=== PATIENT | female | born 1980 | race Caucasian/White ===

== ENCOUNTER → 2019-10-17 10:40 | Outpatient (BNVA) | payer MEDICAID, SELFPAY | PROVIDERS: PCP Obstetrics & Gynecology; Visit Provider Obstetrics & Gynecology | DX: O09.893 Supervision of other high risk pregnancies, third trimester (principal) | CPT/HCPCS: 81003 ==

== ENCOUNTER 2019-10-23 06:38 | Inpatient (IN) | payer MEDICAID, SELFPAY ==
[2019-10-23] VITALS (53 sets, daily range): BP systolic 0–189; BP diastolic 0–88; PULSE 70–112; RESP 16–18; TEMP 36.6–36.7; O2SAT 96–98; BMI 46.5
[2019-10-23 07:25] LABS: Basophils % 0.5 %; Eosinophils # 0.2 10^3/uL (0.0-0.8); Eosinophils % 2.4 %; Hematocrit 36.1 % (37.0-47.0); Hemoglobin 11.2 g/dL (11.5-15.3); Lymphocytes # 1.9 10^3/uL (0.8-4.8); Lymphocytes % 21.3 %; Mean Corpuscular Hemoglobin 26.2 pg (28.0-34.0); Mean Corpuscular Volume 84.5 fL (81-99); Mean Platelet Volume 11.2 fL (7.4-10.4); Monocytes # 0.5 10^3/uL (0.2-0.9); Monocytes % 5.8 %; Neutrophils # 6.1 10^3/uL (1.8-7.7); Neutrophils % 69.5 %; Nucleated Red Blood Cells % 0 %; Platelet Count 231 10^3/cmm (130-400); Red Blood Count 4.27 10^6/uL (4.1-5.3); Red Cell Distribution Width 14.4 % (12.1-15.1); White Blood Count 8.7 10^3/uL (4.0-10.0)
[2019-10-23] MEDS: dextrose 5%-lactated ringers 1,000 ML 125 ML IV ×2 (07:45→17:23)
[2019-10-23] MEDS: ampicillin 2,000 MG in sodium chloride 0.9% (plus) 50 ML 100 MG IV (07:46)
--- NOTE | 2019-10-23 07:49 | PC.NURSE ---
0704 - LENORE PRUITT CRNA CALLED ABOUT THAT IS IN ACTIVE LABOR AT 6CM. SURGEON IS ON HIS WAY IN WELL.
[2019-10-23] MEDS: ondansetron 2 mg/ML SDV 2 mL 4 MG IVP ×2 (08:31→15:53)
[2019-10-23] MEDS: ampicillin 1,000 MG in sodium chloride 0.9% (plus) 50 ML 100 MG IV ×2 (12:05→15:50)
[2019-10-23] MEDS: oxytocin 30 UNIT/500 ML BAG IV (12:45)
--- NOTE | 2019-10-23 17:07 | P.PCNOB_ITS ---
Delivery Note: Date of delivery: 10/25/19 Pre-delivery diagnoses: Term . Previous delivery. Post-delivery diagnoses: Term delivered. Vaginal after delivery. Procedure: Spontaneous vaginal delivery. Anesthesia: none Delivering Physician: Dariusz Cameron M.D. Estimated blood loss (mL): 300 Findings: Male , Apgars 8/9, weight 3950 g. Pre-Delivery Course: The patient is a 39yo at 41 weeks weeks EGA who has been receiving care from [facility]. With a previous delivery plans a vaginal after delivery. She has been experiencing painful uterine contractions for the past 8 hours. The contractions are occurring at 9 minute intervals with approximately 60 second duration. She continues to feel movement between the contractions. She denies vaginal bleeding or rupture of membranes. LMP: unknown Estimated date of confinement: 10/16/2019 by ultrasound at 17 weeks. CC: Onset of labor at term. HPI: Received appropriate care. Daily vitamins since start of care. labs have all been normal, including negative for HIV. She was found to positive for Group B Strep from screening at 36 weeks. She has gained approximately 28 lbs throughout the . She denies a history of HTN during . Glucose tolerance screening for gestational diabetes was negative. Delivery: The patient was noted to be complete and pushing, so was placed in the dorsal lithotomy position, prepped and draped in the usual sterile fashion for a vaginal delivery. Pt. Noted to have no anesthesia by her choice. At 1857 the patient delivered a Viable Term male infant weighing 3950 g with scores of 8 and 9 at one and five minutes, respectively. The vertex was delivered spontaneously over Intact perineum. The patient was asked to push and the head delivered spontaneously in the LAUREL compound position, over an intact perineum. A nuchal cord was checked and None noted. The anterior shoulder delivered easily and the posterior shoulder followed. The remainder of the infant was easily delivered and the oropharynx and nasopharynx was bulb suctioned. The was noted to have spontaneous cry and spontaneous movement of all four extremities. The cord was clamped x 2 and cut and noted to have 2 arteries and one vein. The was passed to the Mother's abdomen where Nursing personnel were in attendance. The placenta delivered intact Spontaneously and the uterus Was explored. 20 units of Pitocin was placed in the IV bag to firm the uterus. Examination of the cervix and vaginal vault did not reveal any lacerations. A vaginal pack was then placed. Examination of the perineum showed No lacerations. The vaginal pack was then removed. The patient tolerated this procedure well, and recovered in L&D with her To the OB gómez. All sponge and needle counts were correct. 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
[2019-10-23] MEDS: acetaminophen 325 mg Tablet 650 MG PO (17:26)
[2019-10-23] MEDS: docusate sodium 100 mg Capsule PO (17:26)
[2019-10-23] MEDS: benzocaine-menthol 78 gm Canister 1 SPRAY TOPICAL (17:34)
[2019-10-23] MEDS: ketorolac 30 mg/mL INJ IVP (17:44)
[2019-10-23] MEDS: oxytocin 30 UNIT/500 ML BAG 600 UNIT IV (17:52)
[2019-10-23 20:06] LABS: Blood Urine Neg (Negative); Glucose Urine UA 4+ (Normal); Ketones Urine 2+ (Negative); Protein Urine 1+ (Negative); Specific Gravity, Urine 1.025 (1.005-1.030); Urine Appearance Clear (CLEAR); Urine Color Yellow (Yellow); pH Urine 5 (5-7)
[2019-10-23 20:07] LABS: Add Urine Microscopic? YES; Bacteria Urine 1+; Bilirubin Urine Neg (NEGATIVE); Leukocyte Esterase Urine Negative (Negative); Mucus Urine 2+; Nitrate Urine Negative (Negative); RBC Urine 0-4 /hpf (0-2); Squamous Epithelial Cell Urine 0-4 (0-5); Urobilinogen Urine Norm (Negative)
[2019-10-23 20:08] LABS: Alanine Aminotransferase 15 U/L (0-33); Albumin Level 3.3 g/dL (3.5-5.2); Alkaline Phosphatase 120 IU/L (35-105); Anion Gap 25.5 (5-19); Aspartate Amino Transferase 19 U/L (0-32); Blood Urea Nitrogen 11 mg/dL (6-20); Calcium 8.5 mg/Dl (8.6-10.0); Carbon Dioxide 18 mmol/L (22-29); Chloride 107 mmol/L (98-107); Globulin 2.5 g/dL (1.3-4.6); Glomerular Filtration Rate 136.6 mL/min (90-130); Glucose 141 mg/dL (74-109); Potassium 3.5 mmol/L (3.5-5.1); Sodium 147 mmol/L (136-145); Total Bilirubin 0.2 mg/dL (0.15-1.2); Total Protein 5.8 g/dL (6.6-8.7); Uric Acid 4.1 mg/dL (2.4-5.7)
[2019-10-23 20:16] LABS: Urine Creatinine 216 mg/dL (28-217)
[2019-10-23 20:21] LABS: UPRO/UCREAT Ratio 0.36 mg/mg CR; Urine Protein Random 78 mg/dL
--- NOTE | 2019-10-23 20:45 | PC.NURSE ---
patient eating dinner with at this time.
--- NOTE | 2019-10-23 21:00 | PC.NURSE ---
Patient called out stating that she was finished with her food and would like to go to the bathroom before the magnesium was started. patient up to void with RN at side.
[2019-10-23] MEDS: dextrose 5%-lactated ringers 1,000 ML 75 ML IV (21:17)
[2019-10-23] MEDS: magnesium sulfate premix 4 GM/100 ML PREMIX IV (21:18)
--- NOTE | 2019-10-23 21:20 | PC.NURSE ---
SCDs applied at this time to bilateral lower extremities and pump on and working.
--- NOTE | 2019-10-23 21:48 | PC.NURSE ---
Mag restarted at 2147 with Yesenia De La Cruz RN to verify dose due to IV infiltration and having to restart IV.
[2019-10-23] MEDS: magnesium sulfate premix 20 GM/500 ML BAG IV (22:07)
[2019-10-23 23:35] LABS: Magnesium Level (OB Only) 3.8 mg/dL (5.0-7.5)
[2019-10-24] VITALS (22 sets, daily range): BP systolic 101–172; BP diastolic 65–88; PULSE 65–86; RESP 15–18; TEMP 36.5–36.9; O2SAT 96–98
[2019-10-24] MEDS: acetaminophen 325 mg Tablet 650 MG PO (04:18)
[2019-10-24 05:26] LABS: Hematocrit 32.1 % (37.0-47.0); Hemoglobin 9.8 g/dL (11.5-15.3); Mean Corpuscular HGB Conc 30.5 g/dL (30.0-36.0); Mean Corpuscular Hemoglobin 26.4 pg (28.0-34.0); Mean Corpuscular Volume 86.5 fL (81-99); Mean Platelet Volume 10.5 fL (7.4-10.4); Platelet Count 184 10^3/cmm (130-400); Red Blood Count 3.71 10^6/uL (4.1-5.3); Red Cell Distribution Width 14.6 % (12.1-15.1); White Blood Count 12.9 10^3/uL (4.0-10.0)
[2019-10-24 05:44] LABS: Magnesium Level (OB Only) 4.7 mg/dL (5.0-7.5)
[2019-10-24] MEDS: magnesium sulfate premix 20 GM/500 ML BAG IV ×2 (08:23→18:44)
[2019-10-24] MEDS: prenatal vitamin Capsule 1 CAP PO (08:24)
[2019-10-24] MEDS: pantoprazole DR 40 mg Tablet PO (08:24)
--- NOTE | 2019-10-24 08:42 | PM.OBGYPN ---
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 Feeling fine Labor: Station: +1 Amniotic Membrane Status: Ruptured Monitor Mode: External Contraction Pattern: Regular Status: Category ll Vitals/I&O/Wt Last Vital Signs Temp 98.4 F 10/24/19 05:00 Pulse 82 10/24/19 06:11 Resp 16 10/24/19 06:11 BP 125/77 10/24/19 06:11 Pulse Ox 97 10/24/19 06:11 10/23/19 10/24/19 10/24/19 22:59 06:59 14:59 Intake Total 1514.133 / 1569.133 500 / 500 Output Total 630 / 630 840 / 1470 Balance 884.133 / 939.133 -840 / 99.133 500 / 500 Weight last 48 hrs Weight 246 lb Weight 246 lb Physical Exam Narrative: EXAM NARRATIVE: GA; alert and oriented x 3 HEENT: normal Breasts: engorged Nipples - skin intact Lungs; clear to auscultation Heart: regular rhythm, no murmurs. Abd: Appropriately tender. BS+. Uterine fundus below umbilicus. No Fundal Tenderness. Perineum: normal lochia. Extremities: no edema, no cyanosis, no tenderness. Urinary Catheter Management^: [place]: Cath Placed During This Visit: no A&P Assessment and plan (1) Term delivered: At this post spontaneous vaginal delivery without complications. Status: Acute Code(s): O80 - Encounter for full-term uncomplicated delivery (2) Pre-eclampsia, : Patient developed preeclampsia , initiated therapy with magnesium sulfate for seizure prophylaxis. 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
--- NOTE | 2019-10-24 09:23 | PC.NURSE ---
bedrails padded r/t pt on mag. seizure precaution in use
[2019-10-24] MEDS: dextrose 5%-lactated ringers 1,000 ML 75 ML IV (10:57)
[2019-10-24 11:59] LABS: Magnesium Level (OB Only) 4.7 mg/dL (5.0-7.5)
[2019-10-24] MEDS: docusate sodium 100 mg Capsule PO (21:17)
[2019-10-25 04:00] VITALS: BP 99/62; PULSE 81; RESP 16; O2SAT 97
[2019-10-25] MEDS: acetaminophen 325 mg Tablet 650 MG PO (07:26)
[2019-10-25] MEDS: prenatal vitamin Capsule 1 CAP PO (09:11)
[2019-10-25] MEDS: docusate sodium 100 mg Capsule PO (09:11)
[2019-10-25] MEDS: pantoprazole DR 40 mg Tablet PO (09:11)
[2019-10-25 09:21] VITALS: BP 134/79; PULSE 87; RESP 16; TEMP 36.6; O2SAT 97
--- NOTE | 2019-10-25 11:26 | P.DS_ITS ---
Discharge Providers [employer] Date of Admission: 10/23/19 06:38 Date of Discharge: 10/25/19 Attending Provider at Admission: Dariusz Cameron Attending Provider at Discharge: Dariusz Cameron Primary Care Provider: Jovany Solorzano Diagnoses at Discharge Discharge Diagnosis (1) Term delivered: Status: Acute Problem details: patient status post spontaneous vaginal delivery day 2. Plan: Continue magnesium sulfate for 24 hours (2) Pre-eclampsia, : Status: Acute Problem details: Patient developed preeclampsia , initiated therapy with magnesium sulfate for seizure prophylaxis. BP normalized. (3) Previous delivery, delivered: Status: Acute Problem details: Reason for Visit Reason for Visit: Reason For Visit: Iup Hospital Course Hospital Course: 39-year-old female with a previous delivery and an estimated gestational age of 41 weeks came to labor and delivery with contractions in active labor. She progressed to have it the without complications. however she developed preeclampsia and she was given magnesium sulfate for seizure prophylaxis. recovery was uneventful. He is afebrile hemodynamically stable. Tolerating diet well. Ambulating without difficulty. Discharge Summary: The patient is a 39yo at 41 weeks weeks EGA who has been receiving care from [facility]. With a previous delivery plans a vaginal after delivery. She has been experiencing painful uterine contractions for the past 8 hours. The contractions are occurring at 9 minute intervals with approximately 60 second duration. She continues to feel movement between the contractions. She denies vaginal bleeding or rupture of membranes. LMP: unknown Estimated date of confinement: 10/16/2019 by ultrasound at 17 weeks. CC: Onset of labor at term. HPI: Received appropriate care. Daily vitamins since start of care. labs have all been normal, including negative for HIV. She was found to positive for Group B Strep from screening at 36 weeks. She has gained approximately 28 lbs throughout the . She denies a history of HTN during . Glucose tolerance screening for gestational diabetes was negative. Information Peripartum Data: Delivery Method: Vaginal Physical Exam Narrative: EXAM NARRATIVE: GA; alert and oriented x 3 HEENT: normal Breasts: engorged Nipples - skin intact Lungs; clear to auscultation Heart: regular rhythm, no murmurs. Abd: Appropriately tender. BS+. Uterine fundus below umbilicus. No Fundal Tenderness. Perineum: normal lochia. Extremities: no edema, no cyanosis, no tenderness. Urinary Catheter Management^: [place]: Cath Placed During This Visit: no Discharge Data Data Completed and Pending: Labs from last 24 hours 10/24/19 10/24/19 17:39 11:05 Magnesium 5.0 4.7 L* Vitals: Last Vital Signs Temp 97.9 F 10/25/19 09:21 Pulse 87 10/25/19 09:21 Resp 16 10/25/19 09:21 BP 134/79 10/25/19 09:21 Pulse Ox 97 10/25/19 09:21 Discharge Plan Discharge Condition: Stable Prescriptions: New docusate sodium 100 mg Capsule 100 mg PO BID Qty: 60 RF: 0 ferrous sulfate 325 mg (65 mg iron) tablet 325 mg PO BID Qty: 60 RF: 0 ibuprofen 800 mg Tablet 800 mg PO TID Qty: 60 RF: 0 Continued Vitamin 27 mg iron- 800 mcg Tablet 1 tab PO DAILY RF: 0 Nexium 20 mg Capsule,Delayed Release(Dr/Ec) 20 mg PO DAILY RF: 0 Discharge Orders: Discharge Order (Routine); Ordered 10/25/19 Ordered By: Dariusz Cameron Discharge Diet: Regular Discharge Activity: Increase activity as tolerated Patient Instructions: , Your Baby (DC), Expression, Collection and Storage of Breastmilk (DC), How to Hold and Breastfeed Your Baby (DC), and Nipple Soreness (DC), How to Increase Your Milk Supply (DC), Breast Care for the Breast Feeding Mother (DC), Vaginal Delivery (DC), Caring for Your Breastfed Baby (GEN), OB Discharge Report, OB Food/Drug Interaction Guide, OB Care at Home, OB Home Care, OB Proud Parent Packet, OB Vaginal Deliveries Activity Restrictions/Additional Instructions: pelvic rest for 6 weeks. 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
[2019-10-25 16:30] VITALS: BP 136/84; PULSE 83; RESP 16; TEMP 36.8; O2SAT 96
[2019-10-25 16:34] VITALS: BP 136/84; PULSE 83; RESP 16; TEMP 36.8; O2SAT 96
== END 2019-10-25 16:50 | disposition home or self-care (01) | DRG 806 ==
LOC: OPOB 06:52
PROVIDERS: Admitting Provider Obstetrics & Gynecology; PCP Obstetrics & Gynecology; Visit Provider Obstetrics & Gynecology
DX: O34.211 Maternal care for low transverse scar from previous cesarean delivery (principal); O98.813 Other maternal infectious and parasitic diseases complicating pregnancy, third trimester; Z37.0 Single live birth; O14.95 Unspecified pre-eclampsia, complicating the puerperium; Z3A.41 41 weeks gestation of pregnancy; B95.1 Streptococcus, group B, as the cause of diseases classified elsewhere; O09.523 Supervision of elderly multigravida, third trimester
CPT/HCPCS: 12345; 36415; 51702; 59409; 80053; 81003; 82570; 83735; 84156; 84550; 85025; 85027; 96375; 99211; J0290; J1885; J2405; J3475

== ENCOUNTER → 2019-12-05 13:51 | Outpatient (BNVA) | payer MEDICAID, SELFPAY | PROVIDERS: PCP Obstetrics & Gynecology; Visit Provider Obstetrics & Gynecology | DX: Z39.2 Encounter for routine postpartum follow-up (principal); Z30.014 Encounter for initial prescription of intrauterine contraceptive device; Z97.5 Presence of (intrauterine) contraceptive device | CPT/HCPCS: 81025; 88175 ==

== ENCOUNTER 2020-04-30 08:00 | Outpatient (CLI) | payer MEDICAID, SELFPAY ==
--- NOTE | 2020-04-30 08:03 | US_ITS ---
WS: [id number] RIGHT UPPER QUADRANT ULTRASOUND HISTORY: NAUSEA/UPPER BACK PAIN/EPIGASTRIC PAIN COMPARISON: None available. Liver: 16.9 cm in length. Normal size and echogenicity with no intrahepatic dilatation. No mass. Gallbladder: Slightly contracted gallbladder with numerous stones near completely filling the gallbla dder. No pericholecystic fluid. CBD: 0.4 cm Pancreas: Normal size and echogenicity. Right kidney: 11.3 cm in length. Normal echogenicity with no mass or hydronephrosis. Aorta and IVC: Unremarkable. No ascites. US/US abdomen limited 31390 IMPRESSION: Cholelithiasis, numerous stones nearly completely filling the gallbladder lumen .
== END 2020-04-30 08:01 | disposition home or self-care (01) ==
LOC: RAD 08:00
PROVIDERS: Visit Provider Nurse Practitioner Family
DX: M54.9 Dorsalgia, unspecified (principal); R11.0 Nausea; R10.13 Epigastric pain; K80.20 Calculus of gallbladder without cholecystitis without obstruction
CPT/HCPCS: 76705

== ENCOUNTER 2020-05-29 07:05 | Day surgery (SDC) | payer MEDICAID, SELFPAY ==
[2020-05-29] VITALS (11 sets, daily range): BP systolic 130–162; BP diastolic 68–91; PULSE 48–73; RESP 14–20; TEMP 35.9–36.6; O2SAT 18–100
[2020-05-29] MEDS: heparin 5,000 unit/mL INJ 1 mL 3000 UNIT SUBCUT (07:56)
[2020-05-29] MEDS: sodium chloride 0.9% 1,000 ML 30 ML IV (07:56)
[2020-05-29 08:04] LABS: OR HCG Qualitative Urine Negative (Negative)
[2020-05-29] MEDS: scopolamine 1.5 Patch 1 PATCH TRANSDERMA (08:14)
--- NOTE | 2020-05-29 08:18 | ANES.PREANE2 ---
Pre-Anesthetic Assessment Pre-Anesthetic Assessment: Height/Weight: Height 1.55 m Weight 86.636 kg Temp Pulse Resp BP Pulse Ox 96.6 F L 51 L 18 143/75 100 05/29/20 07:31 05/29/20 07:31 05/29/20 07:31 05/29/20 07:31 05/29/20 07:31 Preop Diagnosis: Symptomatic cholelithiasis Proposed Procedure: Operation Date: 05/29/20 08:40 Proposed Procedures p Laparoscopic Cholecystectomy 80123 K80.20(Not Applicable) - Reinaldo Wynne MD Familial anesthetic complications: PONV Was Beta David taken within 24 hours: N/A Last intake: Intake Last Liquid Date 05/28/20 Last Liquid Time 19:00 Last Solid Date 05/28/20 Last Solid Time 19:00 Social: Social History: No alcohol and No tobacco Exam: Pre-Anes Outpt Exam: alert, oriented x 3, clear to auscultation bilaterally and regular rate & rhythm Airway: Submandibular: WNL Cervical ROM: WNL MP: 2 Dentition: Full Pulmonary: Pulmonary: None reported CV/HEM: CV/HEM: None reported : : None reported Hepatic: Hepatic: None reported GI: Comments: Cholecystitis Metabolic: Metabolic: None reported Musc/skel: Musc/skel: None reported Neuropsych: Neuropsych: None reported Anesthetic Plan: ASA status: 2 Anesthesia: General Risk of > 500 ml blood loss (7ml/kg in children): No Meds/Allergies Current Medications: Current Medications Generic Name Dose Route Start Last Admin Trade Name Freq PRN Reason Stop Dose Admin Sodium Chloride 1,000 mls @ 30 ml s/hr 05/29/20 07:15 05/29/20 07:56 Sodium Chloride 0.9% IV 05/30/20 07:14 30 mls/hr .Q24H TASHI Administration PFSH Anesthesia PFSH: Medical History (Updated 05/07/20 @ 15:15 by Reinaldo Wynne MD) Cholelithiasis Family History Family/Other Diabetes maternal aunt Breast cancer maternal aunt Thyroid condition maternal aunt, paternal aunt Grandmother Breast cancer maternal Stroke maternal Social History Smoking and tobacco status: former smoker Quit status (tobacco): has quit using tobacco Second hand smoke exposure: No Alcohol intake: never Female Reproductive History: Date of last menstrual period: 05/28/20 Data Anesthesia Other Labs: Laboratory Results - last 48 hr 05/29/20 07:18 Urine HCG, Qual Negative Cardiac Studies: No Data to Display
--- NOTE | 2020-05-29 09:00 | W.PM.OPSUD ---
Surgery/Procedure H&P Update DATE OF PROCEDURE: May 29, 2020 DATE H&P PERFORMED: 05/07/20 H&P UPDATE INFORMATION: I have reviewed H&P completed within last 30 days, I have examined patient prior to procedure and No changes to prior documentation PREOP DIAGNOSIS: Symptomatic cholelithiasis PRIMARY INDICATION FOR PROCEDURE: The same PLANNED PROCEDURE: Operation Date: 05/29/20 08:40 Proposed Procedures p Laparoscopic Cholecystectomy 41004 K80.20(Not Applicable) - Reinaldo Wynne MD
--- NOTE | 2020-05-29 09:49 | SUR.OPER ---
PHONED BELL-SISTER, VIA CELL PHONE UPDATED ON PATIENT STATUS
[2020-05-29] MEDS: lidocaine 2% INJ 20 mL INJECTION (10:02)
--- NOTE | 2020-05-29 10:04 | P.OP_ITS ---
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 Plan of care; After thorough history physical examination and reviewing the chart ,I counseled the patient for laparoscopic cholecystectomy possible open, indications risks including but not limited injury to the common bile duct and other viscera.benefits and alternatives all discussed with the patient, and she did agree to proceed. All questions have been answered and all concerns have been addressed to patient's satisfaction. Rationale was carefully and clearly discussed with the patient.Appropriate informed consent have been reviewed and signed. Procedure: Patient was identified in the holding area and taken back to the operative suite, placed in supine position intubated by anesthesia . Time-out was done verifying the patient's name/date of /planned procedure and destination after the procedure, all were in agreement. SCDs confirmed to be functioning, preoperative antibiotics administered per protocol, and beta jennifer protocol was confirmed. Patient was appropriately secured to the table, footboard was applied to the OR table, before prep and drape anesthesia was asked to tilt the table back and forth to make sure that the patient is appropriately secured and she was. Prep and drape of the abdomen was done under the usual sterile technique, followed by that supraumbilical skin incision,skin incision was done by a 15 blade knife, and stay sutures were applied to the fascia and Rae trocar technique was used to enter the abdominal without injuring any abdominal viscera, started by low flow gas insufflation followed by a high flow, started with a 10 mm laparoscope and under direct vision there was no evidence of any injuries, the scope then switched to a 30? ,10 millimeter scope and under direct visualization 5 millimeter trocar was inserted in the epigastric region followed by two 5 mm trocars were inserted in the right upper quadrant that was done after injection of local lidocaine 2% at all incision sites. Gallbladder showed chronic calculus cholecystitis with fatty liver component Patient was then positioned in the head up and tilted to the left Ratcheted forceps were introduced into the lateral most 5mm port and was applied unto the fundus of the gallbladder cephalad and using Bullet forceps the infundibulum of the gallbladder was retracted laterally. Using [place] forceps then L-hook cautery to dissect the peritoneum overlying the Calot's triangle whihc was then opened medially and laterally until the cystic duct and the cystic artery were skeletonized. Dissection was carried along the body of the gallbladder and after ensuring critical view of safety was identfied. Cystic duct and cystic artery where seen connected to the gallbladder. Clips were applied on the cystic duct towards the common bile duct 1 towards the gallbladder then divided is in sharp scissors, 2 clips were then applied onto the cystic artery and 1 towards the gallbladder and divided by sharp scissors. Dissection was then carried along of the gallbladder from the gallbladder fossa using cautery as well as sharp dissection with heat energy. The gallbladder then was dissected out from the gallbladder fossa totally , cholecystectomy was then achieved and was placed in an Endo Catch bag and then retrieved from the Rae trocar site under direct visualization using a 5 mm 30? scope through the epigastric trocar, specimen was then passed to the circulating nurse to go for permanent pathology,irrigation and hemostasis was done to the gallbladder fossa after hemostasis was secured, final survey laparoscopy was done that showed no injuries. Suction irrigation was obtained The supraumbilical fascial defect was then closed using interrupted Vicryl sutures using a fascial closure device ;Wagner Sinclair under direct visualization Gas was allowed to deflate,Trocars were then taken out under direct vision there was no evidence of bleeding Specimen was passed to the circulating nurse for permanent pathology. No drains were placed and the supraumbilical incision as well as all trocar sites were closed by by 4-0 Monocryl to approximate the skin edges of the supraumbilical incision, dressing was applied in the form of Dermabond and the patient patient got extubated and was taken to recovery area in a stable condition. Count of sponges, needles and instruments were completed at the end of the procedure I was present for the whole entire procedure.
[2020-05-29] MEDS: fentaNYL 50 mcg/mL INJ 2mL IVP ×2 (10:19→10:27)
--- NOTE | 2020-05-29 10:37 | SUR.PHASEI ---
PT NOW ON RA TRIAL, PT SLEEPS IF NOT DISTURBED VSS ABD SOFT 4 SITES D/I SATS MAINTAINED AT 95%
[2020-05-29] MEDS: ondansetron 2 mg/ML SDV 2 mL 4 MG IVP (11:01)
[2020-05-29] MEDS: HYDROcodone-acetaminophen 5-325 mg Tablet 1 TAB PO (11:36)
--- NOTE | 2020-05-29 12:30 | ANE.PACU2 ---
Inpatient post-anesthesia follow up: Airway intact: Yes Vital signs: Temperature 97.8 F Pulse Rate 57 Respiratory Rate 18 Blood Pressure 137/85 Pulse Oximetry 96 Oxygen Delivery Me thod Room Air Oxygen Flow Rate 8 Fraction of Inspir ed Oxygen Hydration adequate: Yes Nausea and vomiting: No Pain level: 1 Mental status: Baseline
--- NOTE | 2020-06-07 17:34 | W.PM.OPSUD ---
Surgery/Procedure H&P Update DATE OF PROCEDURE: May 29, 2020 DATE H&P PERFORMED: 05/03/20 H&P UPDATE INFORMATION: I have reviewed H&P completed within last 30 days, I have examined patient prior to procedure and No changes to prior documentation PREOP DIAGNOSIS: Symptomatic cholelithiasis PRIMARY INDICATION FOR PROCEDURE: The same PLANNED PROCEDURE: Operation Date: 05/29/20 08:40 Proposed Procedures p Laparoscopic Cholecystectomy 15714 K80.20(Not Applicable) - Reinaldo Wynne MD
== END 2020-05-29 12:29 | disposition home or self-care (01) ==
PROVIDERS: Visit Provider Surgery
PROC: 0FT44ZZ Resection of Gallbladder, Percutaneous Endoscopic Approach (ICD-10-PCS; CPT 47562; principal; 2020-05-29 08:35)
DX: K80.10 Calculus of gallbladder with chronic cholecystitis without obstruction (principal); K76.0 Fatty (change of) liver, not elsewhere classified; Z87.891 Personal history of nicotine dependence
CPT/HCPCS: 47562; 12345; 81025; 84703; 88304; 96365; 96372; J0131; J0690; J1100; J1644; J2405; J2704; J2710; J3010; J3490; J7030

== ENCOUNTER → 2023-05-22 08:25 | Outpatient (BNVA) | payer BC, MEDICAID, SELFPAY | PROVIDERS: Visit Provider Podiatrist Foot & Ankle Surgery | DX: M72.2 Plantar fascial fibromatosis; M21.6X1 Other acquired deformities of right foot; M21.6X2 Other acquired deformities of left foot | CPT/HCPCS: 73630 ==

== ENCOUNTER → 2023-07-27 14:56 | Outpatient (BNVA) | payer BC, MEDICAID, SELFPAY | PROVIDERS: Visit Provider Student in an Organized Health Care Education/Training Program | DX: M75.21 Bicipital tendinitis, right shoulder; M75.31 Calcific tendinitis of right shoulder | CPT/HCPCS: 73030 ==

== ENCOUNTER → 2023-10-15 14:57 | Outpatient (BNVA) | payer BC, MEDICAID, SELFPAY | PROVIDERS: Visit Provider Student in an Organized Health Care Education/Training Program | DX: M75.21 Bicipital tendinitis, right shoulder; M25.512 Pain in left shoulder; M75.22 Bicipital tendinitis, left shoulder | CPT/HCPCS: 73030 ==

== ENCOUNTER 2023-11-16 12:45 | Outpatient (CLI) | payer BC, MEDICAID, SELFPAY ==
--- NOTE | 2023-11-16 12:57 | MR_ITS ---
WS: [id number] MRI RIGHT SHOULDER ARTHROGRAM, pre and postcontrast imaging. HISTORY: LABRAL/BICEP TEAR COMPARISON: Radiograph 10/15/2023 TECHNIQUE: Pre and postcontrast imaging. Gadolinium mixture was injected under fluoroscopy. Coronal T 1 fat sat, sagittal T2 fat sat, coronal T2 fat sat, axial proton density, axial T1 nonfat saturation. Precontrast: Moderate AC joint arthritis. Narrowing of the AC joint with osteophyte encroachment upon the myotendinous portion of the supraspinatus. Osteophyte encroaches upon the supraspinatus by appro ximately 4 mm. There is a small amount of reactive bursal fluid. Mild subacromial impingement. Small amount of fluid in the subacromial and subdeltoid bursa. Biceps tendon is in normal position w ith no tear. Long head of the biceps is negative. No labral tear appreciated. There is increased T2 s ignal in the distal supraspinatus tendon most consistent with mild tendinopathy. No tear is identifie d. Previously described calcific deposits radiographically are not as well appreciated by MRI. Postcontrast: There is no extravasation of contrast from the joint space. There is no contrast extend ing into the subacromial or subdeltoid bursa. No full-thickness rotator cuff tear is identified. Seen only on the coronal T1 postcontrast sequence and only on one image there is increased signal beneat h the superior labrum. Suspicious but indeterminate for very minimal labral tear involving the superi or labrum. This is seen really only on one image. There is mild narrowing of the coracohumeral interv al. IMPRESSION: 1. Mild tendinopathy in the distal supraspinatus tendon but no tear. 2. Moderate AC joint arthritis with osteophyte encroachment upon the myotendinous portion of the sup raspinatus. 3. Negative biceps tendon. 4. Seen only on the postcontrast imaging is increased contrast along the superior labrum. This is se en only on one image. Indeterminate but suspicious for superior labral tear. The remaining labrum is negative.
== END 2023-11-16 12:46 | disposition home or self-care (01) ==
LOC: RAD 12:45
PROVIDERS: Visit Provider Student in an Organized Health Care Education/Training Program
DX: M75.31 Calcific tendinitis of right shoulder (principal); M75.21 Bicipital tendinitis, right shoulder; M19.011 Primary osteoarthritis, right shoulder; M25.711 Osteophyte, right shoulder
CPT/HCPCS: 23350; 73223; 77002; A9577; Q9966

== ENCOUNTER → 2024-07-21 08:21 | Outpatient (BNVA) | payer BC, MEDICAID, SELFPAY | PROVIDERS: Visit Provider Physician Assistant | DX: M75.22 Bicipital tendinitis, left shoulder (principal); M75.31 Calcific tendinitis of right shoulder; M75.21 Bicipital tendinitis, right shoulder; M75.32 Calcific tendinitis of left shoulder; M75.42 Impingement syndrome of left shoulder | CPT/HCPCS: 73030 ==

== ENCOUNTER → 2024-09-13 09:07 | Outpatient (BNVA) | payer BC, MEDICAID, SELFPAY | PROVIDERS: Visit Provider Obstetrics & Gynecology | DX: Z30.432 Encounter for removal of intrauterine contraceptive device (principal) | CPT/HCPCS: 87624 ==

== ENCOUNTER → 2024-09-22 08:00 | Outpatient (BNVA) | payer BC, MEDICAID, SELFPAY | PROVIDERS: Visit Provider Obstetrics & Gynecology | DX: N92.6 Irregular menstruation, unspecified (principal) | CPT/HCPCS: 76830 ==

== ENCOUNTER 2024-10-26 07:12 | Outpatient (CLI) | payer BC, MEDICAID, SELFPAY ==
--- NOTE | 2024-10-26 07:15 | MR_ITS ---
WS: [id number] MRI LEFT SHOULDER HISTORY: M75.42 - Impingement syndrome of left shoulder COMPARISON: 07/21/2024 TECHNIQUE: Multiplanar sequences of the shoulder joint are submitted. Mild AC joint arthritis. Mild narrowing of the joint space and small osteophytes of the distal clavic le and acromion. There is downsloping of the acromion encroaching and impinging upon the supraspinatu s tendon directly over the humeral head. Very small amount of fluid in the subdeltoid bursa. No os ac romion. Normal biceps tendon. No rotator cuff muscle atrophy or edema. There is a very small amount of fluid signal in the central distal subscapularis tendon consistent with a focal interstitial tear. The remaining tendons are norm al. No additional tears. Normal glenohumeral joint. Normal glenoid labrum. MR/MR shoulder LT wo con* [id number] IMPRESSION: 1. Marked downsloping of the acromion and impinging upon the distal supraspina tus tendon. 2. Small central interstitial supraspinatus tendon tear. Tear is just distal t o the subacromial impingement. 3. No labral tear. 4. Normal biceps tendon.
== END 2024-10-26 07:13 | disposition home or self-care (01) ==
LOC: RAD 07:13
PROVIDERS: PCP Physician Assistant; Visit Provider Physician Assistant
DX: M75.42 Impingement syndrome of left shoulder (principal); M75.22 Bicipital tendinitis, left shoulder; M13.812 Other specified arthritis, left shoulder; R93.6 Abnormal findings on diagnostic imaging of limbs; M75.102 Unspecified rotator cuff tear or rupture of left shoulder, not specified as traumatic; M25.712 Osteophyte, left shoulder
CPT/HCPCS: 73221

== ENCOUNTER 2024-12-08 10:18 | Day surgery (SDC) | payer BC, MEDICAID, SELFPAY ==
[2024-12-08] VITALS (12 sets, daily range): BP systolic 136–163; BP diastolic 76–115; PULSE 67–87; RESP 14–22; TEMP 36.1–36.6; O2SAT 93–100; BMI 38.5
[2024-12-08] MEDS: acetaminophen 1,000 MG/100 ML PIGGYBACK 400 MG IV (11:27)
[2024-12-08] MEDS: scopolamine 1 mg PATCH 1 PATCH TRANSDERMA (11:30)
[2024-12-08 11:43] LABS: OR HCG Qualitative Urine Negative (Negative)
[2024-12-08] MEDS: ketorolac 30 mg/mL INJ IVP (11:47)
[2024-12-08] MEDS: sodium chloride 0.9% 1,000 ML 30 ML IV (11:47)
--- NOTE | 2024-12-08 12:52 | W.PM.OPSUD ---
Surgery/Procedure H&P Update DATE OF PROCEDURE: December 08, 2024 DATE H&P PERFORMED: 11/08/24 H&P UPDATE INFORMATION: I have reviewed H&P completed within last 30 days, I have examined patient prior to procedure and No changes to prior documentation PREOP DIAGNOSIS: Right shoulder biceps tendinitis, superior labral tear, cuff impingement, r PRIMARY INDICATION FOR PROCEDURE: Right shoulder biceps tendinitis/superior labral tear, rotator cuff impingement syndrome, right carpal tunnel syndrome, right AC joint arthritis PLANNED PROCEDURE: Operation Date: 12/08/24 12:20 Proposed Procedures p Carpal Tunnel Release(Right) - Lonnie Roldan DO s Shoulder Arthroscopy(Right) - DO mikey Gan AC Joint Resection Acromioclavicular Joint Resection(Right) - DO mikey Gan Subacromial Decompression(Right) - DO mikey Gan possible rotator cuff debridement versus repair(Right) - DO mikey Gan possible labral repair versus biceps tenodesis(Right) - Lonnie Roldan DO
--- NOTE | 2024-12-08 13:44 | ANES.PREANE2 ---
Pre-Anesthetic Assessment Height/Weight: Height 1.52 m Weight 89.358 kg Temp Pulse Resp BP Pulse Ox O2 Del Method 97.4 F L 67 16 147/93 99 Room Air 12/08/24 11:04 12/08/24 13:37 12/08/24 13:37 12/08/24 13:37 12/08/24 13:37 12/08/24 13:37 Preop Diagnosis: Right shoulder biceps tendinitis, superior labral tear, cuff impingement, r Operation Date: 12/08/24 12:20 Proposed Procedures p Carpal Tunnel Release(Right) - Lonnie Blanco, DO s Shoulder Arthroscopy(Right) - Lonnie Blanco, DO s AC Joint Resection Acromioclavicular Joint Resection(Right) - Lonnie Blanco, DO s Subacromial Decompression(Right) - Lonnie Blanco, DO s possible rotator cuff debridement versus repair(Right) - Lonnie Zarateatt, DO s possible labral repair versus biceps tenodesis(Right) - Lonnie Zarateatt, DO Familial anesthetic complications: None Was Beta David taken within 24 hours: N/A Was Clonidine taken within 24 hours: N/A Last intake: Intake Last Liquid Date 12/07/24 Last Liquid Time 23:30 Last Solid Date 12/07/24 Last Solid Time 20:00 Social No alcohol and No tobacco Exam alert, oriented x 3, clear to auscultation bilaterally and regular rate & rhythm Airway Mallampati: Class II Dentition: full GI Gastroesophageal Reflux Disease Anesthetic Plan ASA status: 2 Anesthesia: General and Regional (specify below) Risk of > 500 ml blood loss (7ml/kg in children): No Medications/Allergies Home Medications ?Medication ?Instructions ?Recorded ?Confirmed ?Last Taken ?Type cholecalciferol (vitamin D3) 10 10 mcg PO DAILY 07/27/23 12/07/24 12/07/24 History mcg (400 unit) capsule esomeprazole magnesium 20 mg 20 mg PO DAILY 07/27/23 12/07/24 12/07/24 History capsule,delayed release (Nexium) ibuprofen 200 mg capsule 200 mg PO Q6H PRN Pain, Mild 07/27/23 12/07/24 11/23/24 History multivitamin 1 tab PO DAILY 07/27/23 12/07/24 12/07/24 History Allergies Allergy/AdvReac Type Severity Reaction Status Date / Time tetanus toxoid, adsorbed Allergy ALGY-Fever Verified 12/07/24 10:45 Current Medications Generic Name Dose Route Start Last Admin Trade Name Jose PRN Reason Stop Dose Admin Sodium Chloride 1,000 mls @ 30 mls/hr 12/08/24 11:15 12/08/24 11:47 Sodium Chloride 0.9% IV 12/09/24 11:14 30 mls/hr .Q24H TASHI Administration PFS Anesthesia Medical History Cholelithiasis Family History Family/Other Diabetes maternal aunt Breast cancer maternal aunt Thyroid disease maternal aunt, paternal aunt Grandmother Breast cancer maternal Stroke maternal Diabetes Thyroid disease Father Hypertension Social History Smoking and tobacco/nicotine status: former use of tobacco/nicotine Quit status (tobacco/nicotine): has quit using Second hand smoke exposure: No Alcohol intake: never Substance/Drug Use: never Female Reproductive History Date of last menstrual period: 11/23/24 Data Anesthesia Cardiac Studies: No Data to Display
--- NOTE | 2024-12-08 13:46 | SUR.PREOP ---
13:37 right interscalene nerve block performed by Dr Fish using 0.5% ropivacaine with decadrone 8 mg. Pt on monitor showing NSR. Pt tolerated procedure well.
[2024-12-08] MEDS: ceFAZolin 2,000 MG in sodium chloride 0.9% (plus) 50 ML 100 MG IV (13:47)
--- NOTE | 2024-12-08 13:47 | ANES.PROC ---
Anesthesia Procedures Procedure/Date: 12/08/24 Nerve Block ^: Nerve Block 1: Main Anesthesia: general anesthesia Time Out Performed: Yes Consent: requested by attending/covering physician, from patient, from other, risks and benefits reviewed and patient agrees to proceed Nerve block location: interscalene (R) Anesthesia monitors applied: pulse oximetry, EKG, BP cuff and oxygen Nerve block position: semi sitting Anesthetic Used: ropivicaine 0.5% (20) and with decadron (4 mg) Ultrasound used to: recognize landmarks, visualize and ID brachial plexus, in supraclavicular region and visualize and ID interscalene groove Nerve Stimulator Used?: No Injection: neg aspiration of heme Patient Tolerated Procedure: well Complications: none
[2024-12-08] MEDS: EPINEPHrine 1 mg/mL INJ 2 MG XX (14:46)
--- NOTE | 2024-12-08 16:03 | P.BOP_ITS ---
Date of Procedure: [December 08, 2024] Surgeon: [Dr. Yuli DO] Slip Seat Coverer(s): [Erick martin PA-C] Procedure(s) performed: [Right carpal tunnel release Right shoulder diagnostic and surgical arthroscopy Biceps tenodesis Subacromial decompression Rotator cuff debridement AC joint resection Labral debridement] Findings of the procedure(s): [Right carpal tunnel syndrome of right wrist. Right shoulder biceps tendon tear, subacromial bursitis, partial rotator cuff tearing and partial labral tearing, AC joint arthritis. Procedure went well and as planned.] Estimated blood loss: [15 mL] Specimen(s) removed: [n/a] Post-operative diagnosis: [Right carpal tunnel syndrome of right wrist. Right shoulder biceps tendon tear, subacromial bursitis, partial rotator cuff tearing and partial labral tearing, AC joint arthritis.]
--- NOTE | 2024-12-08 16:06 | PM.PACU ---
PACU note Narrative: Patient is a 44-year-old female just underwent a right shoulder diagnosed surgical arthroscopy and right carpal tunnel release. Patient transferred to PACU in stable condition. Pain is well controlled. shoulder Dressing on , dry and in place. Patient's operative arm is in a shoulder immobilizer. dressing on hand is dry and in place. Patient is awake and alert and able to respond to my questions accordingly. Patient's fingers are warm with good perfusion. Normal cap refill under 2 seconds. Unable to assess further range of motion in arm due to sling. Unable to assess sensation due to residual localized anesthetic. Exam: awake Disposition: discharged
--- NOTE | 2024-12-08 18:05 | ANE.PACU2 ---
Inpatient post-anesthesia follow up: Airway intact: Yes Vital signs: Temperature 97.7 F Pulse Rate 74 Respiratory Rate 16 Blood Pressure 151/81 Pulse Oximetry 95 Oxygen Delivery Me thod Room Air Oxygen Flow Rate 3 Fraction of Inspir ed Oxygen Hydration adequate: Yes Nausea and vomiting: No Pain level: 1 Mental status: Baseline
--- NOTE | 2024-12-08 20:21 | P.OP_ITS ---
Operative Report Date of procedure: December 08, 2024 Surgeon: Lonnie Roldan DO Body Component Engineer: Erick Roldan PA-C: shoulder arthroscopy PA was necessary for assistance in this case with shoulder positioning to execute the procedure, assistance with instrumentation, as well as implant fixation when necessary, assist with wound closure and dressing application. carpal release PA was necessary for assistance in this case with hand positioning to execute the procedure, retraction and protection of neurovascular structures as well as to assist with wound closure and dressing application. Procedure: Preoperative diagnosis: Right shoulder biceps tendinitis/superior labral tear, rotator cuff impingement syndrome, right carpal tunnel syndrome, right AC joint arthritis Post-op diagnosis: Right carpal tunnel syndrome of right wrist. Right shoulder biceps tendon tear, subacromial bursitis, partial rotator cuff tearing and partial labral tearing, AC joint arthritis Procedure done: Right?shoulder?diagnostic and surgical arthroscopy with biceps tenodesis Right?shoulder?diagnostic and surgical arthroscopy with rotator cuff debridement Right?shoulder?diagnostic and surgical arthroscopy labral debridement Right?shoulder?diagnostic and surgical arthroscopy acromioclavicular joint resection Right?shoulder?diagnostic and surgical arthroscopy subacromial decompression (ac romioplasty and bursectomy) Right carpal tunnel release Surgeon: Lonnie Roldan DO Estimated blood loss: 15mL IV fluids: See anesthesia record Implants: Arthrex 4.75 bicep tenodesis loop and tack kit Complications: None Condition: stable Disposition: same day Brief History: Patient been seen and worked up in the outpatient setting for?right?shoulder?pain and right carpal tunnel syndrome.? Pt had an MRI which showed findings below.? Patient's failed conservative treatment and has weakness.? We talked about treatment options far as nonoperative and operative intervention..? We talked about risk benefits complication alternatives surgical nonsurgical treatment options.? Understanding risk of surgery he agrees to proceed with surgical intervention.? All questions have been answered at this time.? Patient elects proceed with surgery and consent obtained in preop for right shoulder diagnostic and surgical arthroscopy with AC joint resection, subacromial decompression, possible rotator cuff debridement versus repair, possible labral repair versus biceps tenodesis and right carpal tunnel release IMPRESSION: 1. Mild tendinopathy in the distal supraspinatus tendon but no tear. 2. Moderate AC joint arthritis with osteophyte encroachment upon the myotendinous portion of the supraspinatus. 3. Negative biceps tendon. 4. Seen only on the postcontrast imaging is increased contrast along the superior labrum. This is seen only on one image. Indeterminate but suspicious for superior labral tear. The remaining labrum is negative. Procedure: Patient seen evaluated in the preoperative holding area.? Consent reviewed and signed with patient.? Once again reviewed patient's MRI results as well as? planned surgical intervention.? Correct extremity marked.? Patient seen evaluated by anesthesia department received regional anesthesia.? Once ready for surgery was taken back to the operative suite.? Patient then subsequently underwent anesthesia per the anesthesia department was transported onto the OR table.? Patient was then placed into a lateral decubitus position with a beanbag and was appropriately secured to the bed.? All bony prominences well-padded.? Patient then had the?right?upper extremity was then prepped and draped in standard orthopedic fashion.? Patient received appropriate preoperative antibiotics.? Final timeout performed. The?right?upper extremity was then held in hanging from traction utilizing sterile technique.? Next started with standard diagnostic and surgical arthroscopy with posterior portal position introduced arthroscope into the glenohumeral joint.? Visualized the glenohumeral joint I then introduced a spinal needle within the?rotator?cuff interval to confirm appropriate anterior portal placement.? After flushing the joint fluid, was clearly evident patient had biceps tendon had Superior labral tear. Patient had appreciable unstable biceps anchor most pronounced in the superior labrum. Given there appears to be healthy intra- articular tendon and patient's age, plan was for an intra-articular biceps tenodesis at the superior portion as it enters the intertubercular groove. Thermal wand introduced into the rotator interval. I then release of the rotator interval to have appropriate visualization and the ability to perform biceps tenodesis. At this point I established a purple passport cannula which was introduced. Next I performed an Arthrex loop and tap biceps tenodesis. Passer was then made around the tendon luggage tag stitch around and then thru the tendon, I then utilized a thermal wand to release the biceps tendon at the anchor to perform with tenotomy. I then loaded with suture onto an Arthrex 4.75 swivel lock suture anchor. A punch was then placed in appropriate position at the entry point into the intertubercular groove just superior to the subscapularis tendon. Punch was then introduced to the appropriate depth. The suture loaded on the swivel lock was then advanced held under appropriate tension and shoulder lock anchor was then advanced and had excellent fixation. Excess suture was then cut biceps tenodesis was complete. I then utilized a thermal wand to seal the edges of the superior labrum. Next I evaluated the subscapularis tendon which was intact and no evidence of tear. ?Next there was partial labral tearing at biceps anchor.? ? I then subsequently utilized an arthroscopic shaver and thermal wand to perform a labral debridement.? This point time I then visualized the glenohumeral joint.? The glenohumeral joint was found to have grade 1? chondromalacia throughout.? Axillary pouch was free of loose bodies from viewing the posterior portal.? Next a visualized the?rotator?cuff superiorly and there was found to be a small undersurface tearing of the supraspinatus tendon.? I utilized an arthroscopic shaver to debride this area which was gently debrided and the less than 10% of the tendon thickness there was a negative escape bubble sign throughout the joint consistent with no full-thickness tear. I utilized a spinal needle to donovan this location.?? This completed my work within the glenohumeral joint all fluid was suctioned free of the joint.? ?Next I reintroduced the arthroscope posteriorly.? And went to the subacromial space.? I established my lateral working portal at the site of which my spinal needle was marking of the?rotator?cuff tear.? Thermal wand was then introduced laterally and then I subsequently performed extensive bursectomy of the subacromial space.? Patient had a large anterior bone spur.? At this point time I proceeded with my AC joint resection thermal wand was used and track to the anterior edge of the acromion and then tracked all the way to the AC joint.? Once identified the AC joint this was very arthritic in nature.? Thermal wand was placed anteriorly to establish appropriate plane for AC joint resection.? Once appropriate margins and anterior inferior and anterior capsule was released I then introduced arthroscopic shaver and a bur and performed AC joint resection of both the acromion to cope plane at the AC joint and a distal clavicle resection was then performed totaling 1 cm in size and was confirmed.? This completed my AC joint resection and I then introduced the arthroscopic shaver laterally while continuing to view posteriorly.? I then performed an acromioplasty to complete my subacromial decompression prior to further evaluating rotator cuff. At this point I inspected the rotator cuff in the subacromial space this was found to be completely intact there was no evidence of full-thickness rotator cuff tear and as result patient just underwent a rotator cuff debridement and the undersurface articular area. ?I then switched the arthroscope to the lateral portal just to get another perspective on the rotator cuff and once again was taken through range of motion the rotator cuff inspected and no tear.? ?Next I then introduced the arthroscopic shaver posteriorly to complete my subacromial decompression appropriate complaining all the way up to the lateral edge of the acromion.? This completed the surgery.? All fluid was suctioned from the?shoulder.? All instruments were removed.? The lateral incision was then closed with nylon stitches.? As well as the portal sites closed with portal nylon stitches.? Xeroform 4 x 4's ABD and tape was then applied. All drapes were then subsequently taken down and at this point in time the right upper extremity had a nonsterile tourniquet applied to the forearm and then the right upper extremity was then prepped and send orthopedic fashion to proceed with the right carpal tunnel release. Once again an additional timeout was performed confirming right carpal tunnel release surgery. Incision was then marked. Esmarch was used to exsanguinate the?Right?upper extremity and tourniquet was insufflated to 250 mmHg. A standard mini open?Right?carpal tunnel incision was made.? Starting distally at Weathers's cardinal line in line with the fourth ray extending proximally distal to the wrist crease centered over the carpal tunnel.? Sharp scalpel incision was made through skin and subcutaneous tissue.? Self-retaining retractor was placed and the palmar fascia was identified.? This was then split longitudinally and direct visualization of the transverse carpal ligament was then made.? I then utilizing scalpel feathered through the transverse carpal ligament until I entered the floor of the transverse carpal tunnel ligament into the carpal tunnel.? Next I switched to dissection scissors and completed my release of the transverse carpal ligament distally with care to protect the recurrent motor branch.? I completely released into the palmar fat and until no entrapment was noted distally.? Care was made to protect the superficial palmar arch during my distal dissection.?? Next I utilized a nasal speculum placed on top of the transverse carpal ligament and utilize this to retract the subcutaneous fat and tissue and under direct loupe magnification was able to identify the transverse carpal ligament.? Next I then placed a [place] underneath the transverse carpal tunnel ligament to protect the contents of the carpal tunnel and subsequently utilizing dissection scissors under loupe magnification completely released the transverse carpal ligament proximally into the median antebrachial fascia.? Care was made to protect the palmar cutaneous branch by keeping my scissors curved ulnarly.? Once completely released, I then placed my [place] and had appropriate decompression of the carpal tunnel proximally as well as distally.? I then inspected the contents of the carpal tunnel which showed an hourglass shape of the median nerve showing its compression.? No masses were noted.? Tendons appeared healthy.? Wound was then thoroughly irrigated.? Tourniquet deflated.? Hemostasis satisfactory with bipolar electrocautery.? I then closed the incision with interrupted nylon stitches.? Xeroform 4 x 4's and a bulky soft dressing was applied.? The?right?shoulder?and was placed into a?shoulder?abduction pillow sling for?rotator?cuff repair.? Patient was then awakened from anesthesia and then taken back to PACU in stable condition.? Patient tolerated procedure without any issues. Disposition: Patient taken back in stable condition recovering well.? Dressings on in place clean dry and intact.? Will be nonweightbearing to the?right?upper extremity.? Follow?rotator?cuff repair protocol and carpal tunnel release postop.? Patient to follow-up with ortho in the office in 2 weeks.? Patient will receive appropriate discharge instruction as well as pain medication postoperatively.? All questions answered.? We will contact the office for any questions or concerns.
== END 2024-12-08 18:05 | disposition home or self-care (01) ==
PROVIDERS: Anesthesiology; PCP Physician Assistant; Visit Provider Student in an Organized Health Care Education/Training Program
PROC: (CPT 64721; principal; 2024-12-08 12:20)
PROC: (CPT 29805; 2024-12-08 12:20)
PROC: 0RSG0ZZ Reposition Right Acromioclavicular Joint, Open Approach (ICD-10-PCS; CPT 29828; 2024-12-08 12:20)
PROC: (CPT 29826; 2024-12-08 12:20)
PROC: (CPT 29828; 2024-12-08 12:20)
PROC: (CPT 29807; 2024-12-08 12:20)
PROC: (CPT 29828; 2024-12-08 12:20)
DX: M75.21 Bicipital tendinitis, right shoulder (principal); M75.41 Impingement syndrome of right shoulder; M19.011 Primary osteoarthritis, right shoulder; K21.9 Gastro-esophageal reflux disease without esophagitis; Z79.899 Other long term (current) drug therapy; Z88.7 Allergy status to serum and vaccine; Z87.891 Personal history of nicotine dependence; M75.101 Unspecified rotator cuff tear or rupture of right shoulder, not specified as traumatic; S43.431A Superior glenoid labrum lesion of right shoulder, initial encounter; G56.03 Carpal tunnel syndrome, bilateral upper limbs; X58.XXXA Exposure to other specified factors, initial encounter; M75.51 Bursitis of right shoulder
CPT/HCPCS: 29828; 29826; 29824; 64721; 81025; C1713; J0131; J0171; J0690; J1100; J1885; J2250; J2371; J2405; J2704; J2795; J3010; J3490; J7030

== ENCOUNTER → 2025-09-19 08:47 | Outpatient (BNVA) | payer BC, MEDICAID, SELFPAY | PROVIDERS: Visit Provider Podiatrist Foot & Ankle Surgery | DX: M79.671 Pain in right foot (principal); M79.672 Pain in left foot; M21.6X1 Other acquired deformities of right foot; M21.6X2 Other acquired deformities of left foot; M72.2 Plantar fascial fibromatosis | CPT/HCPCS: 73630 ==